=== PATIENT | male | born 1960 | race Hispanic/Latino ===

== ENCOUNTER 2022-06-18 12:35 | Day surgery (SDC) | payer MEDICARE ==
[2022-06-13 15:35] LABS: EOSINOPHILS % (AUTO) 2.4 % (0.0-8.0); HEMATOCRIT 35.6 % (42-54); MEAN CORPUSCULAR HGB CONC 33.4 g/dL (32.0-36.0); MEAN CORPUSCULAR VOLUME 92.7 fL (79-99); MONOCYTES % (AUTO) 10.1 % (3.0-13.0); PLATELET COUNT (AUTO) 196 K/uL (130-400); RED BLOOD CELL COUNT(AUTO) 3.84 MIL/uL (4.50-6.20); RED CELL DISTRIBUTION WIDTH 13.2 % (11.0-15.5); WHITE BLOOD COUNT (AUTO) 8.7 K/uL (4.8-10.8)
[2022-06-13 15:43] LABS: CREATININE 1.4 mg/dL (0.5-1.5)
[2022-06-14 13:54] VITALS: BP 167/76
[~2022-06-18] VITALS: Ht 170.2 cm; Wt 81.6 kg
[2022-06-18] VITALS (19 sets, daily range): BP systolic 140–163; BP diastolic 58–76
[2022-06-18] MEDS: CEFTRIAXONE 1G VIAL IVP SCH ×2 (06:00→14:00)
[~2022-06-18 12:35] MED LIST: AEC81 PO; ALLO100T PO; AMLO-258 PO; ATOR40TA69 PO; CHLO25TA3 PO; CLOP75TA32 PO; INSU100I26 SQ; IRON PO; LINA5TAB PO; METO100T14 PO; PANT40TA54 PO
[2022-06-18] MEDS ORDERED: 0.9%NACL 1000ML 1,000 ML IV ONE (12:46)
[2022-06-18] MEDS ORDERED: FENTANYL CITRATE PF 50 MCG/1 ML 2ML VIAL ONE (14:12)
[2022-06-18] MEDS ORDERED: PROPOFOL 10 MG/ML 20ML VIAL IV ONE ×2 (14:12→15:00)
[2022-06-18] MEDS ORDERED: GLYCOPYRROLATE 1 MG/5 ML SYRINGE ONE (14:25)
[2022-06-18] MEDS ORDERED: EPHEDRINE SULFATE 50 MG/ML AMPULE ONE (15:13)
== END 2022-06-18 17:30 | disposition home or self-care (01) ==
LOC: DAH 12:35
PROVIDERS: ATTEND Urology
DX: N20.0 Calculus of kidney (principal); Z20.822 Contact with and (suspected) exposure to COVID-19; E66.9 Obesity, unspecified; E11.9 Type 2 diabetes mellitus without complications; I10 Essential (primary) hypertension; M10.9 Gout, unspecified; Z79.82 Long term (current) use of aspirin; Z79.899 Other long term (current) drug therapy; Z79.01 Long term (current) use of anticoagulants; Z98.890 Other specified postprocedural states
CPT/HCPCS: 93005; 87426; 80048; 85025; 36415; 50590; 82948 ×2; A6260; A4663; J7120; J3010; J3490 ×2; J7030; J0696; J2704 ×2; A4215; A4223; A4222; A4221; A4600; A4510